=== PATIENT | male | born 1950 | race American Indian/Alaskan Native ===

== ENCOUNTER 2017-12-03 04:31 | Emergency (ER) | payer MEDICARE ==
--- NOTE | 2017-12-03 06:16 | Emergency Department Report ---
ED CPR HPI - General Chief Complaint: Cardiac Arrest/CPR Stated Complaint: CARDIAC ARREST Time Seen by Provider: 12/03/17 04:54 Source: EMS Mode of arrival: Stretcher Limitations: No Limitations - History of Present Illness Initial Comments: 67-year-old male patient found down at home. He was brought in by EMS. EMS had been working on CPR on this patient for 50 minutes prior to arrival. They had received a call 10 minutes before their arrival. The patient was without CPR for some 10 minutes. He was asystole the entire time. He never had any spontaneous return of cardiac activity or motor activity or respiratory activity. His pupils were fixed and dilated. He was pronounced minutes after arrival. MD Complaint: found unresponsive, stopped breathing, collapsed during rest Place: home ED Review of Systems ROS: Stated complaint: CARDIAC ARREST Other details as noted in HPI Comment: Unobtainable due to pts medical conditions ED Past Medical Hx - Past Medical History Previous Medical History?: Yes ED Physical Exam - General Limitations: No Limitations, Altered Mental Status (patient is being bagged by EMS and is unresponsive) General appearance: other - Head Head exam: Present: atraumatic, normocephalic - Eye Eye exam: Present: other (pupils are fixed and dilated) Pupils: Present: other (fixed and dilated pupils) - ENT ENT exam: Present: mucous membranes dry - Neck Neck exam: Present: full ROM - Respiratory Respiratory exam: Present: normal lung sounds bilaterally - Cardiovascular Cardiovascular Exam: Present: other (asystole) - GI/Abdominal GI/Abdominal exam: Present: soft. Absent: distended, tenderness, guarding - Rectal Rectal exam: Present: deferred - Extremities Exam Extremities exam: Present: normal inspection, full ROM - Neurological Exam Neurological exam: Present: other (unresponsive) - Psychiatric Psychiatric exam: Present: other ( unresponsive unable to perform) - Skin Skin exam: Present: dry, intact. Absent: warm (patient is cold) ED Medical Decision Making - Medical Decision Making Patient had CPR performed for about an hour with no response. He remained asystole. His pupils were fixed and dilated. No spontaneous cardiac, respiratory, or motor activity. He was pronounced . Critical care attestation.: If time is entered above; I have spent that time in minutes in the direct care of this critically ill patient, excluding procedure time. ED Disposition Clinical Impression: Cardiac arrest, Respiratory arrest Disposition: DC-20 Is pt being admited?: No Does the pt Need Aspirin: No Condition: Stable Referrals: PRIMARY CARE, [Primary Care Provider] - 3-5 Days Time of Disposition: 06:18
== END 2017-12-03 07:00 ==
LOC: ED 04:36
DX: I46.9 Cardiac arrest, cause unspecified (principal); R09.2 Respiratory arrest
CPT/HCPCS: 92950